=== PATIENT | female | born 2000 | race Caucasian/White ===

== ENCOUNTER 2024-06-07 13:58 | Outpatient (AMB) | payer BC, SELFPAY ==
--- NOTE | 2024-06-07 14:00 | MHC.OFFVIS ---
Vital Signs 06/07/24 14:11 Height 5 ft 3 in Weight 180 lb BMI 31.9 BP 128/86 Blood Pressure Location Lt brachial Position Sitting Respiration 16 Pulse 95 Pulse Source Pulse Oximeter Pulse Oximetry (%) 99 Oxygen Delivery Method Room Air Intake Visit Reasons: Peroneal Tendonitis of Right Lower Leg Intake Note: Patient comes in for initial visit was referred by [facility]. She is accompanied by partner Katy.Report pain 04/10. Accompanied by: Spouse Allergies No Known Allergies Allergy (Verified 06/07/24 14:04) HPI Comments Details: Claribel is very pleasant 24 years old female who presents today in my office with complains on pain in the right foot and right ankle. In September of 2023 she was doing strenuous exercises in the gym and she started to feel pain in the right foot. She address this issue to primary care physician and was referred to event specialist food demonstrator. She was sent for multiple injections in her food she tried 5 months of physical therapy, she tried protective boot and she tried rest and avoid weight-bearing on the right lower extremity, she tried 10s unit and nothing help her pain. Because of her pain she can sleep normally, she can not do daily activities, she can take care of herself but she can not function normally. 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 She is working on her graduate studies. The pain is worse in the afternoon and less severe in the morning, she tried gabapentin 300 mg t.i.d. she denies side effects but gabapentin does not help her pain. She is taking ibuprofen p.r.n. and it does help pain a little. She reports her pain in terms of tissue damage as pulsing, throbbing, pounding, jumping, shooting, stabbing, lancinating, sharp, lacerating, pinching, crushing, dull, hurting, heavy, tiring, exhausting, spreading, piercing. She had multiple images including MRI and x-ray of the foot. The steroid injections were done by event specialist food demonstrator in the past and it was not helpful for her pain. Past medical history significant for anxiety and ovarian cysts syndrome she denies any past surgical history. She denies smoking cigarettes she drinks few drinks of alcohol once a week, she drinks soda she consumes cannabis approximately 4 times a week and it helps her pain. Review of Systems Const All systems reviewed & are unremarkable except as noted in HPI and below ENT Reports Normal hearing present Neuro Reports Normal hearing present, Denies Abnormal speech present, Denies confusion and Denies Sensory deficit (Neuro) Psych Denies confusion Physical Exam Vital Signs: Last Vital Signs Pulse 95 06/07/24 14:11 Resp 16 06/07/24 14:11 BP 128/86 06/07/24 14:11 Pulse Ox 99 06/07/24 14:11 Oxygen Delivery Method Room Air 06/07/24 14:11 BMI result Body Mass Index 31.9 Const General: no acute distress; No confusion Nutritional Appearance: obese Orientation/consciousness: patient oriented x3 and No confusion Eyes General: appearance normal, both eyes and all related structures Pupils: Equal, round and reactive pupils present EOM: EOMs intact bilaterally Neck Neck: Yes full ROM Chest Chest palpation & inspection: normal inspection of the chest Resp Effort & Inspection: normal respiratory effort, able to speak in complete sentences, normal respiratory pattern, no audible wheezes and no cough Cardio Jugular venous distension: no JVD GI Inspection: Yes normal to inspection Neuro General: patient oriented x3, gait normal and No confusion Cranial nerves: Yes CN's II-XII intact bilaterally, Yes Equal, round and reactive pupils present, Yes Normal hearing present and Yes Ability to bilaterally elevate shoulders present Speech: No Abnormal speech present Gait exam (Neuro): Normal gait present Motor exam (neuro): 5/5 motor strength present throughout Sensory Exam: No Sensory deficit (Neuro) Extrem Other: Normal and maybe even bouncing pulse on dorsalis pedis artery on the right and weaker sensation of the posterior tibial on the right at the same time dorsalis pedis on the left nonpainful side is almost absent but there is distinct pulse on posterior tibial on the left. The collar of the bilateral feet is normal, slightly bluish in discoloration probably because of the prolonged sitting of the patient. The temperature are symmetrical there is no swelling and no redness. Patient reports herself sometimes the right lower foot minimally edematous. I do not observe at this time. The capillary refill is symmetrical and very quick on bilateral toes. Unable to stand on the right foot due to severe pain. Unable to move right foot with passive motion she reports severe pain in the right foot. General: No pedal edema Psych Speech and movement: Normal speech and movement present Affect: normal affect Attitude: cooperative Thought process: Normal thought process present Thought content: Normal thought content present Insight: Good insight present (Psych) Judgement: Good judgement present (Psych) Assessment & Plan Assessment & Plan (1) Neuropathy, peroneal nerve: Code(s): G57.30 - Lesion of lateral popliteal nerve, unspecified lower limb Category: Medical (2) CRPS (complex regional pain syndrome type II): Code(s): G56.40 - Causalgia of unspecified upper limb Category: Medical Plan According to the referral note from her event specialist food demonstrator the patient was initially diagnosed with peroneal tendinitis and right foot arthritis however later on because of the failure of the failure of the conservative therapy including steroid injections, TENs unit, 5 months of physical therapy -the diagnosis was changed for Complex regional pain syndrome. The only evidence for Complex regional pain syndrome today we have the patient's report of slight edema of the right foot. The bouncing pulse of the dorsalis pedis on the right could be also evidence of the condition. Neurological damage of the nerves on the right foot could not be excluded and I will send this patient for EMG study with Dr. Juan . I also offered the patient diagnostic lumbar sympathetic blockade to rule out or confirm diagnosis of complex regional pain syndrome however the patient adamantly refused due to fear of the needles and injections. 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 Orders: Orders NE electromyogram (EMG) Today G56.40 - Causalgia of unspecified upper limb, G57.30 - Lesion of lateral popliteal nerve, unspecified lower limb Patient Instructions: I here by testify that I spent 46 minutes in conversation with this patient as well as evaluating her prior records and prior diagnostic studies as well as planning her care and organizing this note. Coding Level of Care Code New Pt Level 4 (84849) Diagnoses Neuropathy, peroneal nerve G57.30 CRPS (complex regional pain syndrome type II) G56.40
[2024-06-07 14:11] VITALS: BP 128/86; PULSE 95; RESP 16; O2SAT 99; BMI 31.9
== END 2024-06-07 14:42 | disposition home or self-care (01) ==
LOC: HO.PMC 13:59
PROVIDERS: Visit Provider Anesthesiology
DX: G57.30 Lesion of lateral popliteal nerve, unspecified lower limb (principal); G56.40 Causalgia of unspecified upper limb
CPT/HCPCS: 99204

== ENCOUNTER 2024-07-05 15:08 | Outpatient (REF) | payer BC, SELFPAY ==
--- NOTE | 2024-07-05 15:14 | EMG_ITS ---
Patient presented for scheduled NCS/EMG. She was having anxiety attack prior to study. Staff tried to calm her down until she was ready for the test. She took anxiety medication at 245pm. We tried to do NCS but anxiety continued; she was cryinig the whole time and started to hyperventilate. I did not feel safe to continue. Prior to test, no foot drop noted. No redness or swelling. Foot was cold to touch; she was given warm pack. Please have PCP manage anxiety. Can reorder/reschedule this test if truly needed for treatment. Coding: no charge MTDD
--- OUTSIDE RECORDS SUMMARY | 2024-07-11 04:16 | XMS_ITS | Data Portability ---
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 I reviewed the clinical and radiographic findings with Claribel. First I recommend obtaining an MRI of her foot and ankle to evaluate the peroneal tendons and rule out any stress injury of the calcaneus/cuboid. I also recommend weaning her out of the boot and transitioning to an ASO ankle brace. We discussed refraining from all impact activities. I will also place her on anti-inflammatori es (meloxicam prescription sent to her pharmacy). Follow up after the MRIs done [email or web address] Not available 10/31/2023 13:37:45 11/21/2023 11/21/2023 Diagnosis: Chronic left foot/ankle pain Plan: I reviewed the MRI findings with Claribel. I do not appreciate any structural abnormality. I discussed with her that this could be due to underlying inflammatory systemic disease versus referred pain. Nevertheless I do not recommend any acute intervention. We discussed trying a course of physical therapy with anti-inflammatori es measures to see if that help her symptoms. I told her that if her symptoms persist, a right kindly refer her to her PCP or three dimensional map modeler for further evaluation. Follow up on as-needed basis neymar Not available 11/21/2023 15:12:34 Plan of Treatment Reminders Order Date Submit Date Provider Last Modified By Organization Details Last Modified Time Details Appointments None recorded. Lab None recorded. Referral physical therapist referral 2023 024 leta [email or web address] Not available 15:40:27 Procedures None recorded. Surgeries None recorded. Imaging MRI, ankle, w/o contrast - Ankle pain r/o (CPT: 52505) evaluate peroneal tendons 2023 [facility], [place], [address], 14:29:46 MRI, foot, w/o contrast - Foot pain r/o (CPT: 86677) evaluate peroneal tendons 2023 [facility], [place], [address], 14:29:55 Medication Orders meloxicam 15 mg tablet 2023 [id number], [address] [place], [address], 13:38:20 Patient TargetsNo targets recorded. Patient Instructions Encounter Date Encounter Id Patient Instructions Last Modified By Organization Details Last Modified Time 11/12/2022 [id number] We discussed the nature of the injury is possible that she had undisplaced kiwi fracture or ankle sprain advised to continue using the short pneumatic boot can weight bear as tolerated follow-up in 3 weeks for Xray check In the meantime call if any worsening symptoms ice as needed Motrin Tylenol as needed Elevate Not available 11/12/2022 13:15:10 12/03/2022 [id number] We discussed the diagnosis, the fracture and sprain if healed. Resume activities gradually. Wait 2 weeks before jumping or twisting otherwise follow-up as needed. She prefers to do physical therapy on her own Not available 12/03/2022 12:20:50 Reason for Referral Physical Therapist Referral for Peroneal tendinitis of right lower limb Referring Physician: Trinity Ballard, Orthopedic Surgery, Encounter Date: 11/21/2023 Results Created Date Observation Date Name Description Value Unit Range Abnormal Flag Note LastModifiedBy Organization Detail LastModifiedTime 11/13/1911/03/2022 XR, ankle , 3 or more view No observ ation record ed. [email or web address] Not Available 2022 08:38:49 11/13/1911/12/2022 x-ray Ankle INTERFACE [facility] [address] [place] [address] [place], [address], 11/12/2022 10:24:50 12/04/19 23 12/03/2022 x-ray Foot INTERFACE [facility] [address], [address], 12/03/2022 11:19:36 10/31/19 24 10/31/2023 x-ray Foot INTERFACE [facility] [address] [address] [place], [address], 10/31/2023 13:16:56 11/16/19 24 11/16/2023 magne tic reson ance MR Ankle WO (Right ) INTERFACE [facility] [address] [place], [address], 11/16/2023 09:17:02 11/16/19 24 11/16/2023 magne tic reson ance MR Ankle WO (Right ) INTERFACE [address] [address] [place], [address], 11/16/2023 09:19:02 11/16/19 24 11/16/2023 magne tic reson ance MR Foot WO(Rig ht) INTERFACE [address] [place], [address], 11/16/2023 09:46:01 11/16/19 24 11/16/2023 MRI, ankle , w/o contr ast No observ ation record ed. [email or web address] [facility] [place] [facility] [place], [address], 11/17/2023 07:45:02 11/16/1911/16/2023 MRI, foot, w/o contr ast No observ ation record ed. [address] [facility] [place], [address], 11/17/2023 07:45:03 11/23/19 MRI, ankle , w/o contr ast No observ ation record ed. [email or web address] Not Available 09/2023 10:00:38 11/23/1911/16/2023 MRI, foot, w/o contr ast No observ ation record ed. [email or web address] Not Available 09/2023 10:02:58 Result Notes None recorded. Problems Name Problem SNOMED Code Status Onset Date Resolution Date Notes Provider Name and Address Organization Details Recorded Time Peroneal tendiniti s of right lower limb 782739152665 109 Active 2023 TRINITY BALLARD MD [address] [place], [address], [facility] 13:32:49 Problem Notes None recorded. Procedures Surgical History Date Name Laterality Status Provider Name and Address Organization Details Recorded Time 024 Test Interpretation completed TRINITY BALLARD MD [address] [place], [address], [facility] 11/21/2023 15:11:35 024 SMN Xray Foot (3) completed TRINITY BALLARD MD [address] [place], [address], [facility] 10/31/2023 13:35:56 023 SMN Xray Foot (3) completed Harley Braun MD [address] [place], [address], [facility] 12/03/2022 12:20:20 023 SMN Xray Foot (3) completed Harley Braun MD [address] [place], [address], [facility] [place] 11/12/2022 13:13:49 Imaging Results Imaging Date Name Status LastModified by Organiz ation Details LastModified Time 11/03/2022 XR, ankle, 3 or more view completed [email or web address] Information not available 11/30/2022 08:38:49 11/12/2022 x-ray completed INTERFACE [facility] [place] [facility] [address] [place], [address], 11/12/2022 10:24:50 12/03/2022 x-ray completed INTERFACE [facility] [place] [facility] [address] [place], [address], 12/03/2022 11:19:36 10/31/2023 x-ray completed INTERFACE [facility] [address] [place], [address], 10/31/2023 13:16:56 11/16/2023 magnetic resonance completed INTERFACE [facility] [address] [place], [address], 11/16/2023 09:17:02 11/16/2023 magnetic resonance completed INTERFACE [facility] [address] [place], [address], 11/16/2023 09:19:02 11/16/2023 magnetic resonance completed INTERFACE [facility] [place] [facility] [address] [place], [address], 11/16/2023 09:46:01 11/16/2023 MRI, ankle, w/o contrast completed [address] [place], [address], 11/17/2023 07:45:02 11/16/2023 MRI, foot, w/o contrast completed [email or web address] [facility] [place], [address], 11/17/2023 07:45:03 11/23/2023 MRI, ankle, w/o contrast completed Information not available 12/01/2023 10:00:38 11/16/2023 MRI, foot, w/o contrast completed Information not available 12/01/2023 10:02:58 Procedure Notes None recorded. Medical Equipment None Reported. Medications Name Sig Start Date Stop Date Status Note LastModified by Organization Details LastModified Time azithromycin 250 mg tablet TAKE 2 TABLETS BY MOUTH TODAY, THEN TAKE 1 TABLET DAILY FOR 4 DAYS DIRECTED active Not Available Not Available No t Available ibuprofen 800 mg tablet TAKE 1 TABLET BY MOUTH THREE TIMES A DAY WITH FOOD active Not Available Not Available No t Available minocycline 100 mg capsule TAKE 1 CAPSULE BY MOUTH EVERY DAY AT NIGHT active Not Available Not Available No t Available meloxicam 15 mg tablet TAKE 1 TABLET BY MOUTH EVERY DAY active Not Available Not Available No t Available sertraline 100 mg tablet TAKE 1 TABLET BY MOUTH EVERY DAY active Not Available Not Available No t Available risperidone 0.25 mg tablet TAKE 1 TABLET BY MOUTH EVERY NIGHT FOR 1 MONTH active Not Available Not Available No t Available clindamycin 1 %-benzoyl peroxide 5 % topical gel APPLY TOPICALLY TO ACNE EVERY MORNING active Not Available Not Available No t Available sertraline 25 mg tablet TAKE ONE TABLET (25 MG TOTAL) BY MOUTH ONE TIME EACH DAY active Not Available Not Available No t Available ondansetron 4 mg disintegratin g tablet TAKE 1 TABLET BY MOUTH EVERY 8 HOURS NEEDED FOR NAUSEA active Not Available Not Available No t Available sertraline 50 mg tablet TAKE 1 TABLET BY MOUTH EVERY DAY active Not Available Not Available No t Available clindamycin 1.2 % (1 % base)-benzoyl peroxide 5 % topical gel APPLY TO AFFECTED AREA TWICE A DAY active Not Available Not Available No t Available adapalene 0.3 % topical gel APPLY TOPICALLY EVERY NIGHT active Not Available Not Available No t Available Vitals None Recorded Social History None recorded. Functional Status None recorded. Mental Status None recorded. Family History Nothing Reported. Medical History No medical history recorded. Gynecological HistoryNo gynecological history recorded. Obstetrics History GPAL:G 0 P 0 0 0 0 Past Encounters Encounter ID Performer Location Encounter Start Date Encounter Closed Date Diagnosis/Indication Diagnosis SNOMED-CT Code Diagnosis ICD10 Code [id number] Harley Braun MD [facility] [place] [address] [place], [place] [address] 11/12/2022 09:50:55 11/12/2022 16:56:55 Sprain of left ankle [id number] 8582972 S93.402A Closed fra cture of cuboid bone of left foot 0664007831 2826400 S92.212A [id number] MD KI Ritter [address] [place], [place] [address] 12/03/2022 10:59:14 12/06/2022 11:51:13 Closed fracture of cuboid bone of left foot 7128228922 8701612 S92.212A [id number] MD KI PURDY [address] [place], [place] [address] 10/31/2023 13:04:02 11/01/2023 12:25:48 Peroneal tendinitis of right lower limb 3647906989 46481 M76.71 [id number] MD KI PURDY [address] [place], [place] [address] 11/21/2023 14:17:37 11/22/2023 19:03:49 Peroneal tendinitis of right lower limb 2970330384 99265 M76.71 Health Concerns Section Related Observation LastModified by Organization Detai ls LastModified Time None Recorded Concern Status LastModified by Organization Details LastModified Time None Recorded Advance Directives Directive None Recorded Payers Encounter Date Sequence Insurance Name Policy Number Policy Ribera Covered Member ID Ribera Member ID Guarantor Name 11/12/2022 1 [place] [facility] [id number] Ann-Marieyevgeniy Blandon [id number] 25 Claribel Barber 12/03/2022 1 [place] [facility] [place] [id number] Ann-Marieyevgeniy Balovan [id number] 25 Claribel Barber 10/31/2023 1 [place] [facility] [place] [id number] Ann-Marieyevgeniy Balovan [id number] 25 Claribel Barber 10/31/2023 2 [employer] - [employer]ICY Claribel Barber [id number] Claribel Blandon 11/21/2023 1 [facility] [place] [id number] Ann-Marie Blandon [id number] 25 Claribel Blandon 11/21/2023 2 [employer] - [employer] POLICY Claribel Blandon [id number] Claribel Blandon Notes Date Note Type Note Provider Name and Address Organization Details Recorded Time 11/12/2022 text/html 22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 She was walking when she stepped off a curb rolling her ankle she rested for 2 weeks but because of some discomfort puppy trainer urged her to get an Xray x-rays or urgent care show possible cuboid fractureShe was given a short boot and presents here.She states that there was quite a bit of swelling bruising which has already resolved she denies taking pain medications having pain at night any prior injuries or past medical history Harley Braun MD [address] [place], [address], [facility] 11/12/2022 13:15:40 12/03/2022 text/html Jose C returns fo r follow-up for left ankle sprain and undisplaced cuboid fracture left foot. She denies any pain has been working with the pneumatic boot short, without pain, it has been 6 weeks since her injury Harley Braun MD [address] [place], [address], [facility] 12/03/2022 12:23:10 10/31/2023 text/html Claribel is a [facility] 23-year-old female patient who is being evaluated today for right foot and ankle pain. 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 She reports that about 6 weeks ago, she was doing an uphill strengthening drill. She does not routinely do running drills. The next day, she had significant pain along the lateral ankle and foot. She has been seeing her physical trainer and she has been immobilized in a boot since then. She has also been working with her puppy trainer with stretching, anti-inflammatories therapy measures. She reports that nothing has improved her symptoms. She has still the same amount of pain that radiates from just behind the lateral malleolus all the way to the pinky toe and sometimes crosses to the big toe. Pain is mostly worse with activities but she also experiences pain at rest. She denies any tingling or numbness or night pain TRINITY BALLARD MD [address] [place], [address], [facility] 10/31/2023 13:38:53 11/21/2023 text/html Claribel is a [facility] 23-year-old female patient who is following up today for right foot and ankle pain to review her MRI. 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 She reports that about 6 weeks ago, she was doing an uphill strengthening drill. She does not routinely do running drills. The next day, she had significant pain along the lateral ankle and foot. She has been seeing her physical trainer and she has been immobilized in a boot since then. She has also been working with her puppy trainer with stretching, anti-inflammatories therapy measures. She reports that nothing has improved her symptoms. She has still the same amount of pain that radiates from just behind the lateral malleolus all the way to the pinky toe and sometimes crosses to the big toe. Pain is mostly worse with activities but she also experiences pain at rest. She denies any tingling or numbness or night pain TRINITY BALLARD MD [address] [place], [address], [facility] 11/21/2023 15:12:48 OBGyn Episode No OBEpisode recorded.
== END 2024-07-05 15:09 | disposition home or self-care (01) ==
LOC: HO.NEURO 15:08
PROVIDERS: Visit Provider Anesthesiology
DX: Z13.89 Encounter for screening for other disorder (principal)